=== PATIENT | male | born 1970 ===

== ENCOUNTER → 2016-10-25 | Outpatient (CLI) | payer OTHER ==
--- NOTE | 2016-10-26 11:35 | XCELERA REPORT ---
[address] [address] Lower Extremity Arterial Evaluation Name: HERMELINDA MANDUJANO JR Angel Age: 46 yrs Gender: Male : 1970 Patient Status: Outpatient Patient Location: Study Date: 10/25/2016 01:38 PM Procedure: A color flow and duplex scan of the lower extremity arteries was performed bilaterally with velocity and waveform anaylsis. Ankle brachial indicies performed. 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 Biphasic in the infrageniculate vessels.With moderate broadening. 20-49 % stenosis at the infrageniculate arteries. Ankle Brachial index is 0.76. Left Side Arterial Evaluation Normal velocity and triphasic waveforms noted in the Common Femoral artery. Biphasic thereafter to the infrageniculate vessels. With moderate broadening. 20-49 % stenosis at the Femoral artery . Ankle Brachial index is 0.90. Interpretation Summary Moderate hemodynamically significant lesions in the bilateral lower extremities, on duplex imaging, at rest. : JOSSELYN GALARZA > Garfield Berry
--- NOTE | 2016-10-26 17:20 | XCELERA REPORT ---
[address] [address] Transthoracic Echocardiogram Report Name: HERMELINDA MANDUJANO JR Age: 46 yrs Gender: Male : 1970 Patient Status: Outpatient Patient Location: Study Date: 10/25/2016 12:50 PM Procedure: A two-dimensional transthoracic echocardiogram with color flow and Doppler was performed. Study Quality: Fair. Reason For Study: CHEST PAIN History: CHEST PAIN. Ordering Physician: DESTINEE GALARZA Performed By: Chevy Soto Interpretation Summary The left ventricle is normal in size. There is normal left ventricular wall thickness. LV EF is 65% Left ventricular systolic function is normal. Doppler measurements suggest normal left ventricular diastolic function The left ventricular wall motion is normal. There is no thrombus. There is no ventricular septal defect visualized. The right ventricle is normal in size and function. The left atrial size is normal. The interatrial septum is intact with no evidence for an atrial septal defect. There is no evidence of mitral valve prolapse. There is no mitral valve stenosis. There is no mitral regurgitation noted. There is no aortic valve stenosis There is no LVOT obstruction. No aortic regurgitation is present. There is no tricuspid stenosis. There is a trace amount of tricuspid regurgitation Right ventricular systolic pressure is normal. RVSP is 27 mm of Hg , with RA mean of 5. There is no pulmonic valvular stenosis. There is no pulmonic valvular regurgitation. The aortic root is normal size. There is no pericardial effusion. MMode/2D Measurements \T\ Calculations RVDd: 2.5 cm LVIDd: 4.8 cm FS: 33.7 % Ao root diam: 2.9 cm IVSd: 1.1 cm LVIDs: 3.2 cm EDV(Teich): 109.5 ml Ao root area: 6.6 cm2 LVPWd: 1.2 cm ESV(Teich): 41.2 ml EF(Teich): 62.4 % Doppler Measurements \T\ Calculations MV E max grant: MV dec slope: Ao V2 max: LV V1 max P.6 cm/sec 467.2 cm/sec2 172.0 cm/sec 5.4 mmHg MV A max grant: MV dec time: Ao max PG: LV V1 max: 76.3 cm/sec 0.20 sec 11.8 mmHg 116.4 cm/sec MV E/A: 1.3 PA V2 max: TR max grant: RAP systole: 85.1 cm/sec 237.0 cm/sec 5.0 mmHg PA max PG: TR max P.5 mmHg 2.9 mmHg RVSP(TR): 27.5 mmHg Left Ventricle The left ventricle is normal in size. There is normal left ventricular wall thickness. LV EF is 65%. Left ventricular systolic function is normal. Doppler measurements suggest normal left ventricular diastolic function. The left ventricular wall motion is normal. There is no thrombus. There is no ventricular septal defect visualized. Right Ventricle The right ventricle is normal in size and function. Atria The right atrium is normal. The left atrial size is normal. The interatrial septum is intact with no evidence for an atrial septal defect. Mitral Valve There is no evidence of mitral valve prolapse. There is no vegetation seen on the mitral valve. There is no mitral valve stenosis. There is no mitral regurgitation noted. Aortic Valve There is no aortic valvular vegetation. There is no aortic valve stenosis. There is no LVOT obstruction. No aortic regurgitation is present. Tricuspid Valve There is no tricuspid stenosis. There is a trace amount of tricuspid regurgitation. Right ventricular systolic pressure is normal. RVSP is 27 mm of Hg , with RA mean of 5. Pulmonic Valve There is no pulmonic valvular stenosis. There is no pulmonic valvular regurgitation. Great Vessels The aortic root is normal size. Effusions There is no pericardial effusion. : DESTINEE GALARZA > Destinee Galarza
== END ==
LOC: SP 12:41
PROVIDERS: ATTEND Specialist
DX: I73.9 Peripheral vascular disease, unspecified (principal); R07.9 Chest pain, unspecified
CPT/HCPCS: 93306; 93925

== ENCOUNTER → 2016-11-08 | Outpatient (CLI) | payer OTHER ==
[2016-11-08 12:57] LABS: ABSOLUTE BASOPHILS # (AUTO) 0.1 10^3/uL (0.0-0.2); ABSOLUTE EOSINOPHILS # (AUTO) 0.2 10^3/uL (0.0-0.6); ABSOLUTE LYMPHOCYTES (AUTO) 4.1 10^3/uL (0.5-4.7); ABSOLUTE MONOCYTES (AUTO) 1.1 10^3/uL (0.1-1.4); ABSOLUTE NEUT (AUTO) 8.2 10^3/uL (1.7-8.2); BASOPHILS % (AUTO) 0.4 % (0-2); EOSINOPHILS % (AUTO) 1.8 % (0-6); HEMATOCRIT 46.6 % (37.9-51.0); HEMOGLOBIN 15.6 g/dL (13.5-17.0); HGB HCT DIFFERENCE 0.2; MEAN CORPUSCULAR HEMOGLOBIN 29.9 pg (27.0-33.4); MEAN CORPUSCULAR HGB CONC 33.5 g/dL (32.0-36.0); MEAN CORPUSCULAR VOLUME 89 fl (80-97); MONOCYTES % (AUTO) 7.8 % (3-13); RED BLOOD COUNT 5.23 10^6/uL (4.35-5.55); RED CELL DISTRIBUTION WIDTH 13.5 % (11.5-14.0); WHITE BLOOD COUNT 13.7 10^3/uL (4.0-10.5)
[2016-11-08 13:06] LABS: PROTHROMBIN TIME 11.7 SEC (11.4-15.4)
[2016-11-08 13:07] LABS: PARTIAL THROMBOPLASTIN TIME 33.9 SEC (23.5-35.8)
[2016-11-08 13:27] LABS: ANION GAP 10 (5-19); BLOOD UREA NITROGEN 12 mg/dL (7-20); CARBON DIOXIDE 26 mmol/L (22-30); CHLORIDE 107 mmol/L (98-107); CREATININE RESULT 0.89 mg/dL (0.52-1.25); GLUCOSE 80 mg/dL (75-110); SODIUM 142.7 mmol/L (137-145)
== END ==
LOC: OD 11:44
PROVIDERS: ATTEND Internal Medicine
DX: R94.30 Abnormal result of cardiovascular function study, unspecified (principal); R06.02 Shortness of breath; E78.4 Other hyperlipidemia; R00.2 Palpitations; R07.2 Precordial pain; E11.9 Type 2 diabetes mellitus without complications; I10 Essential (primary) hypertension; I73.9 Peripheral vascular disease, unspecified; G47.33 Obstructive sleep apnea (adult) (pediatric); Z79.899 Other long term (current) drug therapy
CPT/HCPCS: 36415; 80051; 82565; 82947; 83735; 84520; 85025; 85610; 85730